=== PATIENT | male | born 1985 | race Caucasian/White ===

== ENCOUNTER 2019-06-28 07:09 | Day surgery (SDC) | payer OTHER, SELFPAY ==
[2019-06-24 13:21] VITALS: BMI 27.2
[2019-06-28] VITALS (8 sets, daily range): BP systolic 87–115; BP diastolic 52–72; PULSE 60–82; RESP 16–18; TEMP 36.3–36.7; O2SAT 96–100
--- NOTE | 2019-06-28 07:46 | HMH.PROC ---
[facility] Procedure Note Procedure Note:: Colonoscopy Procedure Report: Colonoscopy with cold biopsies Endoscopist: Ari Garcia II, MD Referring physician: Charles Patel M.D. Date of Procedure: June 28, 2019 Equipment: Olympus 180 variable stiffness pediatric colonoscope Sedation: MAC sedation Indication: Mr. Christianson is a 34-year-old gentleman with a history of chronic Crohn's colitis. The patient does have a positive ASCA IgG antibody and negative p-ANCA. The patient originally had colonoscopy in August 2016 and had very mild disease diagnosed at that time. He developed more severe symptoms of diarrhea, rectal bleeding and urgency and had a sigmoidoscopy in February 2017 that showed more severe proctocolitis. He began Entyvio infusion every 8 weeks (300 mg intravenously). He has done very well with this regimen until approximately 3 months ago when he began to have more urgency and frequency with smaller caliber stools. We did do telemedicine visit on May 27, 2019. I recommended Konsyl fiber and Canasa. He did improve. However, he did take Entyvio infusion 3 to 4 weeks ago and developed some streaking of blood 2 weeks later. He has had no diarrhea. His lab work from June 06, 2019 showed normal sed rate, CRP and CBC. The patient did improve with Canasa suppositories. He had no improvement with Anusol HC suppositories. Procedure: Prior to the procedure, a history and physical exam was performed, and patient's medications and allergies were reviewed. The risks, benefits and alternatives of the sedation and procedure were discussed with the patient. All questions were answered and informed consent was obtained. The patient was brought to the procedure room. Patient identification and proposed procedure were verified by the physician and the nurse. The patient was placed in a left lateral decubitus position and the scope was passed under direct vision. Throughout the procedure, the patient's blood pressure, pulse, and oxygen saturations were monitored continuously. The colonoscopy was accomplished without difficulty. The patient tolerated the procedure well. Findings: On digital rectal examination there was normal rectal tone. There were no external hemorrhoids. The colonoscope was introduced through the anal canal to the rectum and advanced to the cecum. The ileocecal valve and appendiceal orifice were identified. The scope was advanced a short distance into the ileum which appeared grossly normal. The scope was then withdrawn into the colon. The cecum, ascending, transverse and descending colon were grossly normal. Within the distal sigmoid, there was mucosal erythema with granular appearance and loss of vascular pattern consistent with mild patchy colitis that was circumferential. There was a bit of a skip area and then there was disease with superficial ulceration involving the distal 3 to 4 cm of rectum. Cold biopsies were taken from the sigmoid and rectum separately. The findings were most consistent with mild left-sided Crohn's/ulcerative proctocolitis. Upon retroflexion within the rectum there were small grade 1 internal hemorrhoids but primarily obliterated by the mucosal inflammation in the distal rectum to the pectinate line.The preparation was excellent throughout with Sterling Preparation Score of 9. The cecal time was 12 minutes. Impression: 1. Mild left-sided Crohn's proctocolitis (involvement of distal sigmoid with skip area and involvement of distal rectum) Plan: I will discuss treatment options. I would continue Canasa suppositories. I will obtain vedolumimab level and antibodies. If he has antibodies or normal levels, we may need to consider another biologic treatment option. If his levels are low, I would consider increasing dosage or frequency. I will discussed the findings with patient and family. I would consider prednisone taper to induce remission. I will follow-up the biopsies.
--- NOTE | 2019-06-28 08:12 | HMH.ANESCL ---
[facility] Anesthesia Checklist - Patient Identification Patient Identification: Arm Band, Verbal (Name & ) - Structural Data Admitted From: Home Planned Operative Procedure/s: Colonoscopy Consent for Planned Operative Procedure(s) Verified: Yes Verified Documents: Surgical Consent, History and Physical - NPO Status Verified Time NPO: 00:00 - Chart Verification Results Verified: None - Additional verifications Anesthesia Reactions: No - Airway Assessment C-Spine Mobility Assessed: Yes TMJ Mobility Assessed: Yes Dentition: Good Dentition - Neurological Assessment Level of Consciousness: Awake, Alert, Appropriate, Follows Commands Hx Seizures: No Numbness or tingling in extremities: No - Anesthesia Plan Anesthesia Risk discussed: Yes Anesthesia Plan: Verified ASA Class: II Anesthesia Type: MAC [facility] History I have reviewed the patient's past medical history: Yes Medical History: Denies:: Cancer, Diabetes Mellitus Type 1, Diabetes Mellitus Type 2, Internal Pacemaker, MRSA, Seizures *Have you ever received a pneumonia vaccine?: No *Have you received a flu vaccine this season?: Yes Comment:: ulcerative colitis Anesthesia experience/problems:: no prior complications Other Surgeries: No: Pacemaker Amputation: No Fractures: No - *Social History Educational Level: Completed College Smoking Status: Never smoker Alcohol Intake: current Alcohol Intake Frequency:: 0-2 drinks per day Substance Use Type: denies use *Occupational Status:: employed Housing: house Household Members: spouse *Travel in the last 8 weeks: None Family Hx:: No significant family history
[2019-07-05 17:54] LABS: Miscellaneous Test SEE LABCORP REPORT
== END 2019-06-28 09:17 | disposition home or self-care (01) ==
LOC: OUTP 07:13
PROVIDERS: PCP Internal Medicine; Visit Provider Internal Medicine Gastroenterology
PROC: 0DJD8ZZ Inspection of Lower Intestinal Tract, Via Natural or Artificial Opening Endoscopic (ICD-10-PCS; CPT 45378; principal; 2019-06-28 08:00)
DX: K50.10 Crohn's disease of large intestine without complications (principal)
CPT/HCPCS: 45380; 36415; J2704